=== PATIENT | male | born 1970 | race Caucasian/White ===

== ENCOUNTER 2018-01-20 14:44 | Emergency (ER) | payer OTHER ==
--- NOTE | 2018-01-20 15:34 | RAD ---
INDICATION: LEFT elbow pain and swelling following injury. COMPARISON: No relevant prior exams available on the [facility] PACS for comparison. TECHNIQUE: AP, lateral, and oblique views LEFT elbow. REPORT: Displaced anterior and posterior fat pads consistent with joint effusion. Intra-articular fracture of the radial head involving approximate 30% of the articular surface with up to 2 mm articular surface incongruity due to impaction of the radial peripheral aspect. No additional fracture evident. Normal articular alignment. Mild predominant dorsal soft tissue swelling. IMPRESSION: Acute impacted radial head fracture.
--- NOTE | 2018-01-20 16:11 | ED ---
Upper Extremity Pain - HPI Summary HPI Summary: Patient is a 47-year-old male who presents emergency department for a left elbow injury that occurred yesterday. Patient states he was riding a overboard when he fell off and landed onto his left arm. No other injuries were sustained. Symptoms are mild in severity. Associated symptoms swelling to left elbow. Pain is exacerbated with movement and palpation. No significant past medical history. - History of Current Complaint Chief Complaint: EDExtremityUpper Stated Complaint: LT ARM INJURY Time Seen by Provider: 01/20/18 14:57 Hx Obtained From: Patient - Allergies/Home Medications Allergies/Adverse Reactions: Allergies Allergy/AdvReac Type Severity Reaction Status Date / Time Penicillins Allergy Hives Verified 01/20/18 14:53 PMH/Surg Hx/FS Hx/Imm Hx Previously Healthy: Yes Infectious Disease History: No Infectious Disease History: Denies: Traveled Outside the [place] in Last 30 Days - Social History Occupation: Employed Full-time Lives: With Family Review of Systems Positive: Other - left shoulder pain Neurological: Negative Negative: Weakness, Paresthesia, Numbness All Other Systems Reviewed And Are Negative: Yes Physical Exam Triage Information Reviewed: Yes Vital Signs On Initial Exam: Initial Vitals Temp Pulse Resp BP Pulse Ox 97.9 F 88 16 118/75 97 01/20/18 14:50 01/20/18 14:50 01/20/18 14:50 01/20/18 14:50 01/20/18 14:50 Vital Signs Reviewed: Yes Appearance: Positive: Well-Appearing - Patient sitting on bed in no acute distress. Family present. Skin: Positive: Warm, Dry Head/Face: Positive: Normal Head/Face Inspection Eyes: Positive: Normal Neck: Positive: Supple Musculoskeletal: Positive: Other - Left arm is neurovascular intact with good palpable radial pulse. Moderate edema noted to the lateral aspect of the left shoulder. Limited range of motion with extension. No proximal or distal injuries. Superficial abrasion. Neurological: Positive: Normal, CN Intact II-III Psychiatric: Positive: Normal Procedures - Splinting Left Upper Extremity Hand-Made Type: orthoglass Splint: Posterior long arm Pre-Proc Neuro Vasc Exam: normal Post-Proc Neuro Vasc Exam: normal Diagnostics - Vital Signs Vital Signs Temp Pulse Resp BP Pulse Ox 01/20/18 14:50 97.9 F 88 16 118/75 97 - Laboratory Lab Statement: Any lab studies that have been ordered have been reviewed, and results considered in the medical decision making process. Course/Dx - Course Course Of Treatment: Patient presenting to the ER for a left elbow injury. X- ray of the left elbow shows a minimally displaced radial head fracture, reading per radiology myself. Patient was placed in a long-arm splint. Advised to call orthopedics tomorrow for an appointment. To ice and elevate arm. Tylenol for pain as directed. Patient understands and agrees with plan. - Diagnoses Differential Diagnosis/HQI/PQRI: Positive: Fracture (Closed), Hematoma, Strain, Sprain Provider Diagnoses: Radial head fracture, closed Discharge - Sign-Out/Discharge Documenting (check all that apply): Discharge/Admit/Transfer - Discharge Plan Condition: Good Disposition: HOME Patient Education Materials: Elbow Fracture (ED) Referrals: Radha Wilkinson MD [Primary Care Provider] - Isidoro Izaguirre MD [Medical Doctor] - Additional Instructions: Call Dr. Izaguirre's office tomorrow to schedule an appointment Keep splint in place Ice and elevate Tylenol for pain as directed Return to ER if symptoms change or worsen - Billing Disposition and Condition Condition: GOOD Disposition: HOME
[2018-01-20 16:26] VITALS: BP 128/83
== END 2018-01-20 16:25 | disposition home or self-care (01) ==
LOC: ED 14:44
DX: S52.122A Displaced fracture of head of left radius, initial encounter for closed fracture (principal); V00.181A Fall from other rolling-type pedestrian conveyance, initial encounter; Z88.0 Allergy status to penicillin
CPT/HCPCS: 99281